=== PATIENT | male | born 1970 | race Caucasian/White ===

== ENCOUNTER 2022-12-02 16:50 | Emergency (ER) | payer SELFPAY ==
[2022-12-02] VITALS (9 sets, daily range): BP systolic 128–151; BP diastolic 65–85; PULSE 62–92; RESP 15–19; TEMP 36.6–36.8; O2SAT 94–99
--- NOTE | ~2022-12-02 | CT_ITS ---
EXAMINATION: CT abdomen pelvis w con DATE: 12/02/2022 20:24 INDICATION: LLQ pain TECHNIQUE: Computed tomography (CT) of the abdomen and pelvis was performed with 100 mL Omnipaque-350 intravenous contrast. Automated exposure control and iterative reconstruction technique were employe d. The dose-length product was 1002.86 mGy-cm. COMPARISON: None. FINDINGS: Lower thorax: Multiple scattered pulmonary nodules, largest in the left lower lobe measuring 7 mm. Ao rtic and coronary artery calcifications. Liver: Normal. Biliary/Gallbladder: Gallbladder is normal. No bile duct dilation. Pancreas: No mass or duct dilation. Spleen: Normal. Adrenals:No mass. Kidneys: Nonobstructing left lower pole calculi. No suspicious mass. No hydronephrosis or perinephric stranding. GI tract: Mild distal esophageal wall edema. Mild sigmoid wall edema. Mild dilation and mucosal hyper emia of multiple loops of small bowel in the lower abdomen, without transition point. No large bowel dilation. Normal appendix. Diverticulosis without diverticulitis. Mesentery/Peritoneum: No ascites, mass, or free air. Retroperitoneum: No mass. Atherosclerotic abdominal aortic and/or arterial calcifications. Pelvis: 7 mm calcification in the dependent left urinary bladder near the left UVJ. Soft Tissues: Soft tissues and body wall unremarkable. Bones: Chronic appearing height loss at L5 and mild anterior wedge deformity at L3. IMPRESSION: Multiple pulmonary nodules, recommend follow-up low-dose noncontrast CT of the chest in 3-6 months. Esophagitis. Small bowel findings likely represent mild ileus/enteritis. 7 mm calcification near the left UVJ, unlikely to represent a stone impacted in the UVJ, given the la ck of any signs of obstructive uropathy. This is felt to more likely represent a bladder calcificatio n or passed nephrolith. Sigmoid colitis. Mild height loss at L5 and wedge deformity at L3, likely chronic unless accompanied by acute back timi n. Reviewed, dictated and finalized at location K. IMPRESSION: Multiple pulmonary nodules, recommend follow-up low-dose noncontrast CT of the chest in 3-6 months. Esophagitis. Small bowel findings likely represent mild ileus/enteritis. 7 mm calcification near the left UVJ, unlikely to represent a stone impacted in the UVJ, given the lack of any signs of obstructive uropathy. This is felt to more likely represent a bladder calcification or passed nephrolith. Sigmoid colitis. Mild height loss at L5 and wedge deformity at L3, likely chronic unless accompa nied by acute back pain.
--- NOTE | 2022-12-02 19:32 | ED.GENADULT ---
HPI - General Adult General Chief complaint: Nausea/Vomiting/Diarrhea Stated complaint: diarrhea x 3 days Time Seen by Provider: 12/02/22 19:03 History of Present Illness HPI narrative: Patient 52-year-old gentleman who presents to Emergency Department with a chief complaint of diarrhea. The patient reports for the last several days he has had pure water type diarrhea patient denies any blood denies travel denies being on antibiotics denies any new foods. Patient reports that he has prior history of diverticulitis and reports that he does have some discomfort in the left lower quadrant. Related Data Allergies Allergy/AdvReac Type Severity Reaction Status Date / Time dulaglutide [[facility]] AdvReac Other Verified 12/02/22 19:04 metformin AdvReac Diarrhea Verified 12/02/22 19:04 Review of Systems Review of Systems: A 10 system review of systems was completed on the patient and is negative except for what is stated in the HPI. Nursing and ancillary documentation was reviewed. Exam Narrative: GENERAL: Well-appearing, well-nourished, and in no acute distress. HEAD: Normocephalic, atraumatic. EYES: PERRLA and EOMI. ENT: Nares clear, no rhinorrhea or epistaxis. Mucous membranes moist. NECK: Supple. CHEST: Clear to auscultation. No respiratory distress. HEART: Regular rate and rhythm. No murmur heard. Normal peripheral pulses. ABDOMEN: Soft, tender to palpation in the left lower quadrant, nondistended, normal active bowel sounds. EXTREMITIES: Normal range of motion. No edema. SKIN: Warm, dry, no rash. NEURO: No focal deficits. Alert and oriented x3. PSYCH: Normal mood and affect. Course Vital Signs Vital signs: Vital Signs Temperature 36.6 C 12/02/22 17:00 Pulse Rate 92 12/02/22 17:00 Respiratory Rate 12/02/22 17:00 Blood Pressure 128/79 12/02/22 17:00 Pulse Oximetry 99 12/02/22 17:00 Oxygen Delivery Room Air 12/02/22 17:00 Temperature 36.6 C 12/02/22 17:00 Pulse Rate 92 12/02/22 17:00 Respiratory Rate 19 12/02/22 17:00 Blood Pressure 151/85 H 12/02/22 19:01 Pulse Oximetry 97 12/02/22 19:46 Oxygen Delivery Room Air 12/02/22 17:00 Medical Decision Making MDM Narrative Medical decision making narrative: Differential diagnosis includes colitis, diverticulitis CT scan of the abdomen pelvis shows bladder stone and also evidence of sigmoid colitis Laboratory studies were obtained on the patient which showed a normal CBC electrolytes within normal and his lipase was slightly elevated at [address] scan of the abdomen pelvis showed no evidence of pancreatitis. Patient be started on Cipro and Flagyl and will be discharged home to follow-up with primary care provider the patient reports he is feeling better after receiving IV fluids and would like outpatient treatment Vital Signs Vital Signs: Vital Signs Temperature 36.6 C 12/02/22 17:00 Pulse Rate 92 12/02/22 17:00 Respiratory Rate 19 12/02/22 17:00 Blood Pressure 128/79 12/02/22 17:00 Pulse Oximetry 99 12/02/22 17:00 Oxygen Delivery Room Air 12/02/22 17:00 Temperature 36.6 C 12/02/22 17:00 Pulse Rate 92 12/02/22 17:00 Respiratory Rate 19 12/02/22 17:00 Blood Pressure 151/85 H 12/02/22 19:01 Pulse Oximetry 97 12/02/22 19:46 Oxygen Delivery Room Air 12/02/22 17:00 Lab Data 12/02/22 19:37 12/02/22 19:37 Labs: Lab Results 12/02/22 Range/Units 19:37 WBC 8.3 (4.5-10.0) K/mm3 RBC 4.91 (4.6-6.20) M/mm3 Hgb 16.2 (14.0-18.0) g/dL Hct 46.4 (42.0-52.0) % MCV 94.5 (80-100) fl MCH 33.0 (26-34) pg MCHC 34.9 (32-36) g/dl RDW 12.6 (11.5-14.5) % Plt Count 231 (150-375) k/mm3 MPV 9.7 (7.4-10.4) fl Immature Gran % (Auto) 0.4 (0-0.5) % Neut % (Auto) 57.8 (45.5-73.1) % Lymph % (Auto) 31.8 (18.3-44.2) % [place] % (Auto) 7.7 (2.6-8.5) % Eos % (Auto) 1.8 (0-4.4) % Baso % (Auto) 0.5 (0
[2022-12-02] MEDS: DICYCLOMINE HCL INJ 20 MG/2 ML VIAL IM (19:38)
[2022-12-02] MEDS: ONDANSETRON INJ 4 MG/2 ML VIAL IV PUSH (19:38)
[2022-12-02] MEDS: SODIUM CHLORIDE 0.9% IV 1,000 ML 999 ML IV CONT (19:39)
[2022-12-02 19:45] LABS: Basophils Percent Auto 0.5 % (0.2-1.2); Eosinophils Absolute Auto 0.2 K/mm3 (0-0.3); Eosinophils Percent Auto 1.8 % (0-4.4); Hematocrit 46.4 % (42.0-52.0); Hemoglobin 16.2 g/dL (14.0-18.0); Immature Granulocyte Absolute 0.03 K/mm3 (0.00-0.031); Immature Granulocyte Percent A 0.4 % (0-0.5); Lymphocytes Absolute Auto 2.64 K/mm3 (0.9-3.2); Lymphocytes Percent Auto 31.8 % (18.3-44.2); Mean Corpuscular HGB Conc 34.9 g/dl (32-36); Mean Corpuscular Volume 94.5 fl (80-100); Mean Platelet Volume 9.7 fl (7.4-10.4); Monocytes Absolute Auto 0.6 K/mm3 (0.1-0.6); Monocytes Percent Auto 7.7 % (2.6-8.5); Neutrophils Absolute Auto 4.8 K/mm3 (1.3-6.7); Neutrophils Percent Auto 57.8 % (45.5-73.1); Platelet Count Result 231 k/mm3 (150-375); Red Blood Count 4.91 M/mm3 (4.6-6.20); Red Cell Distribution Width 12.6 % (11.5-14.5); White Blood Count 8.3 K/mm3 (4.5-10.0)
[2022-12-02 20:08] LABS: Alanine Aminotransferase 25 U/L (6-50); Albumin Level 4.3 g/dL (3.5-5.1); Alkaline Phosphatase 143 U/L (38-126); Anion Gap 12 mmol/L (8-16); Aspartate Amino Transferase 27 U/L (17-59); Bilirubin,Total 0.6 mg/dL (0.2-1.3); Blood Urea Nitrogen 14 mg/dL (9-20); Calcium 9.3 mg/dL (8.4-10.2); Carbon Dioxide 22 mmol/L (22-30); Chloride 105 mmol/L (98-107); Estimated CRCL calculation 126 ml/min; Estimated Glomerular Filt Rate > 60; Glucose 101 mg/dL (65-110); Lipase 394 U/L (23-300); Potassium 3.8 mmol/L (3.4-5.0); Sodium 139 mmol/L (137-145)
== END 2022-12-02 21:35 | disposition home or self-care (01) ==
PROVIDERS: Emergency Medicine; Emergency Provider Emergency Medicine; PCP Internal Medicine
DX: K52.9 Noninfective gastroenteritis and colitis, unspecified (principal)
CPT/HCPCS: 36415; 74177; 80053; 83690; 85025; 96361; 96372; 96374; 99284; J0500; J2405; J7030; Q9967